=== PATIENT | male | born 1935 | race Caucasian/White ===

== ENCOUNTER 2016-10-31 08:31 | Inpatient (IN) | payer MEDICARE, OTHER ==
--- NOTE | ~2016-10-31 | HP ---
History And Physical [address] [id number] [place]. [address] NAME: JOSSELYN BLANDON : 35 STATUS : ADM Dora PAT#: [id number] AGE: 81 ADM/REG DATE : 10/31/16 MR#: [id number] REPORT SERV DATE: 11/01/16 DICTATED BY: DIDI MURCIA DATE: 11/01/16 REPORT STATUS : Draft TRANSCRIBED BY: MODAnali DATE: 11/01/16 DATE OF ADMISSION: 10/31/2016 PRIMARY OIL AND GAS DRAFTER: Wero Amaro M.D. CHIEF COMPLAINT: Chest pain. HISTORY OF PRESENT ILLNESS: This is a very pleasant and tswiwjm-qwiw-tihfkbdxq-stated-age 81 year-old male with a history of nonischemic cardiomyopathy and permanent pacemaker as well as paroxysmal atrial fibrillation who states onset of chest pain at rest on Tuesday evening. It occurred around 10 o'clock in the evening, described as midsternal and left sided with no radiation and no accompanying shortness of breath. The patient actually took a shower and went to bed, and when he got up around 2 o'clock walked around, the pain returned. It was a 5/10 in intensity. It was worse and described as "heavy." Again, he returned to bed, and he woke up around 7 o'clock, and the pain returned when he was walking around. He came to our emergency department for further evaluation around 8:30 in the morning and was given full-dose aspirin as well as 1 inch nitroglycerin paste which fully relieved the pain. He has had no further re-occurrence of his symptoms. He actually worked in the yard most of the day on Tuesday with no chest pains and has had no other recent exertional chest pains. The patient was seen in the office on 10/19/[address] Amaro. He has a history of chronic systolic heart failure with an EF of 25% to 30% on his last echocardiogram earlier this month. He denies any lower extremity edema, PND, or orthopnea. He is compliant with all of his medications. When asked if he had any palpitations associated with his chest pain, he states that he did not, and he did take his pulse rate and it seemed to be fast. PAST MEDICAL HISTORY: 1. Nonischemic cardiomyopathy with an EF of 25% to 30%. Cardiac catheterization in 2005 showing no significant disease. Most recent echocardiogram on 10/06/2016 with EF of 25% to 30% and normal right-sided function. Moderate diastolic dysfunction. 2. 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 Original implementation in 1997 secondary to third-degree heart block. Upgraded to the Bi-V ICD in 2008 which developed infection and needed to be extracted. Reimplantation later that year with a dual-chamber ICD and then generator replacement in 2016. It is a [employer] device. 3. Paroxysmal atrial fibrillation, on chronic anticoagulation with Xarelto. PAST SURGICAL HISTORY: 1. Tonsillectomy and adenoidectomy. 2. Lumbar diskectomy in 1999. 3. Bilateral shoulder rotator cuff repair, left in 1995 and right in 2002. 4. Right carpal tunnel release in 2000. 5. Left carpal tunnel release in 2005. 6. Multiple left and right trigger finger surgeries. History And Physical [address] [address] NAME: JOSESLYN BLANDON : 35 STATUS : ADM Dora PAT#: [id number] AGE: 81 ADM/REG DATE : 10/31/16 MR#: [id number] REPORT SERV DATE: 11/01/16 DICTATED BY: DIDI MURCIA DATE: 11/01/16 REPORT STATUS : Draft TRANSCRIBED BY: MAYNOR DATE: 11/01/16 HOME MEDICATIONS: Lisinopril 5 every day with lunch, Toprol 50 mg with lunch, multivitamin daily as a standard tab with lunch, Xarelto 20 mg p.o. with lunch, and Flomax 0.4 mg with lunch. ALLERGIES: CODEINE CAUSES JITTERING AND "SKIN CRAWLING." SOCIAL HISTORY: The patient is . 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 He still works a side business for [email or web address]. He has never smoked. He drinks one glass of red wine daily. He exercises daily. FAMILY HISTORY: Brother with a pacemaker. Father of an OR at age 77, also needed a pacemaker. REVIEW OF SYSTEMS: Negative except as indicated above. PHYSICAL EXAMINATION: VITAL SIGNS: Blood pressure 125/65, heart rate 60s to 70s, temperature 97.6, and pulse oximetry 95% room air. BMI 22.3. GENERAL: Well developed, well nourished, in no acute distress HEENT: Anicteric. Normal EOM. Head normocephalic. PERRLA, no xanthelasma. NECK: Supple. No JVD. Carotids normal without bruits. LUNGS: Clear to auscultation bilaterally anterior and posterior. Respirations even and unlabored. CARDIAC: S1 and S2. Regular rate and rhythm. PVCs noted. PMI nondisplaced. No murmurs, rubs, or gallops appreciated. There is a pacemaker device on the right chest wall. ABDOMEN: Normal bowel sounds. Soft and nontender to palpation. No masses or organomegaly. EXTREMITIES: No peripheral edema. DP/PT and radial pulses palpable bilaterally. No clubbing or cyanosis. SKIN: Warm and dry. Normal turgor. No pallor or cyanosis. MUSCULOSKELETAL: Moving all extremities x4. Normal muscle strength. NEURO/PSYCH: Alert and oriented with appropriate affect. LABORATORY DATA: White blood count 4.0, hemoglobin 15.0, and hematocrit 42.8. Sodium 139, potassium 4.5, BUN 24, and creatinine 1.0. Troponin 0.03 and 0.03. Glucose is elevated at 230. IMAGING: Chest x-ray showed old granulomatous disease. No acute cardiopulmonary processes. Pacemaker in place. EKGs interpreted by myself indicate atrial- and ventricular-paced rhythm with PVCs. Review of telemetry also indicates an AV-paced rhythm and V-paced rhythm with PVCs. ASSESSMENT AND PLAN: 1. Midsternal chest pain in this 81-year-old male with no specific cardiovascular risk factors. He does have a history of nonischemic cardiomyopathy with an ejection fraction of 25% to 30%. He does appear euvolemic, but he has actually performed his regular duties without any exertional chest pain recently. His troponins are negative. History And Physical [address] [address] NAME: JOSSELYN BLANDON : 35 STATUS : ADM Dora PAT#: [id number] AGE: 81 ADM/REG DATE : 10/31/16 MR#: [id number] REPORT SERV DATE: 11/01/16 DICTATED BY: DIDI MURCIA DATE: 11/01/16 REPORT STATUS : Draft TRANSCRIBED BY: MAYNOR DATE: 11/01/16 With some of the ventricular ectopy noted on his pacemaker and also the patient stating somewhat elevated heart rate when he was having the chest pain, I will ask [facility] [facility] to interrogate his device to assess for any significant arrhythmia while the patient is having chest pain. I will also recommend proceeding with a nuclear stress test today. If this is low risk, we will discharge him home to follow up with his primary care physician as well as his primary bagger meat. 2. Nonischemic cardiomyopathy and chronic systolic congestive heart failure with an ejection fraction of 25% to 30% on most recent echocardiogram. The patient is euvolemic. Continue home medications. This includes an SADE and a long-acting beta- teja. 3. Paroxysmal atrial fibrillation, the patient is compliant with Xarelto. No evidence of paroxysmal atrial fibrillation on my review of telemetry. Pacemaker interrogation as above. 4. Premature ventricular contractions. The patient's electrolytes appear normal. The patient is on Toprol-XL. We will assess for the frequency of these with the interrogation mentioned above. DBT/MODL Didi Murcia NP / [id number] CC: Vy Rob, MSN, SECURITY SYSTEM ADMINISTRATOR-BC Josselyn Hollingsworth M.D. Wero Amaro M.D.
--- NOTE | ~2016-10-31 | CN ---
Consultation Report [facility] [address] [place]. [address] NAME: JOSSELYN NORIEGA : 35 STATUS : ADM Dora PAT#: [id number] AGE: 81 ADM/REG DATE : 10/31/16 MR#: [id number] REPORT SERV DATE: 11/01/16 DICTATED BY: WERO AMARO DATE: 11/01/16 REPORT STATUS : Draft TRANSCRIBED BY: MODL DATE: 11/01/16 ELECTROPHYSIOLOGY CONSULTATION. DATE OF CONSULTATION: Service for the chest pain observation unit. HISTORY OF PRESENT ILLNESS: Josselyn Noriega is an 81-year-old man with a known background of dilated cardiomyopathy. He had been seen in the past by Dr. Briseno and then by Dr. Lujan and I had seen him in the office recently. There has been some discussion regarding possible upgrade to a biventricular ICD; however, this has been attempted on two separate occasions for this gentleman and both had been unsuccessful by Dr. Briseno and Dr. Lujan and overall, the man has good functional status and normally functioning right infraclavicular dual-chamber ICD. He does frequently pace in the right ventricle. He has had previous infection of a left-sided ICD. He presented to the emergency room with some chest discomfort over the weekend. A perfusion study demonstrates "apical ischemia" and he is being considered for coronary arteriography tomorrow. He is comfortable at the present time without chest pain or shortness of breath. He reports over the last year, he has noticed some exertional chest discomfort that is better with rest. No syncope. No recent ICD shocks. He has a known history of dilated cardiomyopathy with an ejection fraction of 30% when measured most recently on 10/06/2016. PAST MEDICAL HISTORY: Dilated cardiomyopathy, history of ICD with previous ICD infection. Coronary arteriogram in 1997 demonstrated normal coronaries. HOME MEDICATIONS: Lisinopril, metoprolol, multivitamins, rivaroxaban, Flomax. ALLERGIES: CODEINE. OTHER PAST HISTORY: Paroxysmal atrial fibrillation. FAMILY HISTORY: Reviewed and noncontributory. REVIEW OF SYSTEMS: As per the HPI. Otherwise, all other review of systems negative. PHYSICAL EXAMINATION: VITAL SIGNS: Blood pressure 102/52, pulse 69, respiratory rate is 18. GENERAL: Appears stated age, no distress. EYES: Sclerae anicteric, no arcus senilis. MOUTH: Oral mucosa moist, lips acyanotic. NECK: Jugular venous pressure normal, no carotid bruits. LUNGS: Clear to auscultation bilaterally, normal inspiratory effort. CARDIAC: Regular rhythm. No gross murmurs. ABDOMEN: Soft, nondistended, nontender. Consultation Report [address]. [address] NAME: JOSSELYN NORIEGA : 35 STATUS : ADM Dora PAT#: [id number] AGE: 81 ADM/REG DATE : 10/31/16 MR#: [id number] REPORT SERV DATE: 11/01/16 DICTATED BY: WERO AMARO DATE: 11/01/16 REPORT STATUS : Draft TRANSCRIBED BY: MODL DATE: 11/01/16 EXTREMITIES: No edema. SKIN: Warm and dry. NEURO/PSYCH: Alert and oriented, nonfocal, mood appropriate. DATA: Sodium 139, potassium 4.5, creatinine 1.06, hemoglobin 15, troponin 0.03 x2. ECG is AV sequential paced with frequent ventricular ectopy. Chest x-ray demonstrates right-sided dual chamber ICD with appropriate positioning of RV and RA leads. IMPRESSION: 1. Questionable atrial lead noise. I have reviewed the interrogation and this is unable to be reproduced. There was normal impedances sensing and pacing of this lead. We will continue to follow this clinically for now. No planned programming changes or revision to the patient's ICD system at the present time. 2. Dilated cardiomyopathy. 3. Chest pain syndrome with an abnormal MPI. 4. Complicated device history as described in outpatient notes. Recommendation through with further evaluation for ischemia. The patient listed for an arteriogram tomorrow. We will follow the patient back in the office. All questions answered. NATASHAB/MAYNOR Wero Amaro M.D. / [id number] CC: Vy Rob, MSN, CALCINER OPERATOR HELPER-BC Josselyn Hollingsworth M.D.
[~2016-10-31 08:31] MED LIST: ASAB PO; AZO STANDARD PO; CENTRUM PO; CIP5 PO; FLOMAX4 PO; K500 PO; MULTIPLE VIT PO; PRIN5 PO; TOPXL25 PO; TOPXL50 PO; ZESTRIL5 MG PO
[2016-10-31 09:30] LABS: BASOPHILS 0.7 %; BASOPHILS ABSOLUTE 0.03 10/3/uL (0.0-0.16); EOSINOPHILS 2.5 %; ER CBC TAT 0 Hrs 08 Mins; HEMATOCRIT 42.8 % (40.0-51.0); LYMPHOCYTES ABSOLUTE 0.68 10/3/uL (0.67-4.30); MANUAL DIFF NO %; MEAN CORPUSCULAR HEMOGLOB 32.6 pg (26.0-34.0); MEAN PLATELET VOLUME 9.4 fL (9.2-13.0); MONOCYTES 10.7 %; MONOCYTES ABSOLUTE 0.43 10/3/uL (0.21-1.20); NEUTROPHILS 69.1 %; NEUTROPHILS ABSOLUTE 2.77 10/3/uL (2.02-8.40); PLATELET COUNT 165 10/3/uL (150-400); RBC DISTRIBUTION WIDTH 12.1 % (12.0-16.0)
[2016-10-31 09:35] LABS: INTERNATIONAL NORMAL RATI 1.1 UNITS (-); PARTIAL THROMBO TIME 30.9 SEC (22.5-37.2); PROTIME (NOT ORD) 14.3 SEC (12.0-14.5)
[2016-10-31 09:45] LABS: CHEST PAIN PROFILE TAT 0 Hrs 23 Mins; CHLORIDE, SERUM 105 MMOL/L (96-112); CO2 (CARBON DIOXIDE) 27 MMOL/L (24-34); CREATININE 1.06 MG/DL (0.70-1.30); GFR AFRICAN AMERICAN 76 ML/MIN (>=60); GFR NON AFRICAN AMERICAN 65 ML/MIN (>=60); POTASSIUM, SERUM 4.5 MMOL/L (3.5-5.3); SODIUM, SERUM 139 MMOL/L (135-148); TROPONIN I 0.03 NG/ML (<0.05)
[2016-10-31 09:46] LABS: BUN (BLOOD UREA NITROGEN) 24 MG/DL (6-23); GLUCOSE, SERUM 230 MG/DL (60-99)
[2016-10-31] MEDS ORDERED: XARELTO20 MG PO (11:52)
[2016-10-31] MEDS ORDERED: PRIN5 PO (11:52)
[2016-10-31] MEDS ORDERED: TOPXL50 PO (11:52)
[2016-10-31] MEDS ORDERED: MULTIVIT/MIN PO (11:53)
[2016-10-31] MEDS ORDERED: FLOMAX4 PO (11:53)
[2016-10-31] MEDS ORDERED: AZO-STANDARD95 MG PO (11:53)
[2016-11-02 05:22] LABS: BASOPHILS 0.2 %; BASOPHILS ABSOLUTE 0.01 10/3/uL (0.0-0.16); EOSINOPHILS 2.4 %; HEMATOCRIT 45.9 % (40.0-51.0); HEMOGLOBIN 16.1 g/dL (13.6-17.8); IMMATURE GRANULOCYTES 0.2 %; IMMATURE GRANULOCYTES ABSOLUTE 0.01 10/3/uL (0.0-0.11); LYMPHOCYTES 25.7 %; LYMPHOCYTES ABSOLUTE 1.05 10/3/uL (0.67-4.30); MEAN CORPUS HGB CONC 35.1 g/dL (32.0-36.0); MEAN CORPUSCULAR HEMOGLOB 32.6 pg (26.0-34.0); MEAN CORPUSCULAR VOLUME 92.9 fL (80-100); MEAN PLATELET VOLUME 9.3 fL (9.2-13.0); MONOCYTES 10.5 %; MONOCYTES ABSOLUTE 0.43 10/3/uL (0.21-1.20); NEUTROPHILS ABSOLUTE 2.49 10/3/uL (2.02-8.40); PLATELET COUNT 166 10/3/uL (150-400); RBC DISTRIBUTION WIDTH 12.1 % (12.0-16.0); RED CELL COUNT 4.94 10/6/uL (4.7-6.1); WHITE BLOOD CELLS 4.1 10/3/uL (4.5-10.5)
[2016-11-02 05:23] LABS: MANUAL DIFF NO %
[2016-11-02 05:28] LABS: INTERNATIONAL NORMAL RATI 1.2 UNITS (-); PROTIME (NOT ORD) 14.6 SEC (12.0-14.5)
[2016-11-02 05:57] LABS: CALCIUM, SERUM 8.6 MG/DL (8.5-10.4); CHLORIDE, SERUM 105 MMOL/L (96-112); CHOL/HDL RATIO(NOT ORDER) 3.3 (0-5); CHOLESTEROL 195 MG/DL (< 200); CO2 (CARBON DIOXIDE) 26 MMOL/L (24-34); CREATININE 0.95 MG/DL (0.70-1.30); GFR AFRICAN AMERICAN 87 ML/MIN (>=60); GFR NON AFRICAN AMERICAN 75 ML/MIN (>=60); LDL CHOLESTEROL 122 MG/DL (< 130); NON-HDL CHOLESTEROL 136 MG/DL (< 160); POTASSIUM, SERUM 4.3 MMOL/L (3.5-5.3); SODIUM, SERUM 139 MMOL/L (135-148); TRIGLYCERIDE 70 MG/DL (< 150)
[2016-11-02 05:59] LABS: BUN (BLOOD UREA NITROGEN) 14 MG/DL (6-23); GLUCOSE, SERUM 165 MG/DL (60-99); HDL CHOLESTEROL 59 MG/DL (> 39)
== END 2016-11-02 18:15 | disposition home or self-care (01) | DRG 287 ==
LOC: ER 08:31 → CDU1 12:07
PROVIDERS: Nurse Practitioner
PROC: 4A023N7 Measurement of Cardiac Sampling and Pressure, Left Heart, Percutaneous Approach (ICD-10-PCS; principal; 2016-11-02)
PROC: B2111ZZ Fluoroscopy of Multiple Coronary Arteries using Low Osmolar Contrast (ICD-10-PCS; 2016-11-02)
PROC: B2151ZZ Fluoroscopy of Left Heart using Low Osmolar Contrast (ICD-10-PCS; 2016-11-02)
PROC: 4B02XTZ Measurement of Cardiac Defibrillator, External Approach (ICD-10-PCS; 2016-11-02)
DX: R07.89 Other chest pain (principal); I42.0 Dilated cardiomyopathy; I50.22 Chronic systolic (congestive) heart failure; I48.0 Paroxysmal atrial fibrillation; I49.3 Ventricular premature depolarization; Z95.810 Presence of automatic (implantable) cardiac defibrillator
CPT/HCPCS: 71010; 78452; 80048; 80061; 82962; 83036; 83735; 84484; 85025; 85610; 85730; 93005; 93017; 93458; 99152; 99153; 99285; A9270-GY; A9502; C1760; C1769; C1894; J0153; J2250; J3010; Q9967